=== PATIENT | male | born 1985 | race Caucasian/White ===

== ENCOUNTER → 2017-10-31 | Day surgery (SDC) | payer OTHER ==
[~2017-10-31] VITALS: Ht 177.8 cm; Wt 99.8 kg
[~2017-10-31] MED LIST: PERCOCET 5-3251 EACH PO
--- NOTE | 2017-11-04 12:10 | Operative Report ---
Operative/Inv Procedure Report Surgery Date: 10/31/17 Name of Procedure: Excision of deep upper back lipoma, 7 cm diameter Pre-Operative Diagnosis: Upper back lipoma Post-Operative Diagnosis: Same, deep Estimated Blood Loss: scant Surgeon/Personal Care Service Provider: Francisco Javier HUTCHINSON,Otoniel MUNGUIA Anesthesia: general endotracheal tube Operative/Procedure Note Note: After time outs patient was positioned lateral the lipoma was marked on the skin after induction of anesthesia and injection of local anesthetic at the dianna a 4 cm horizontal incision was made with a 15 blade and deepened with cautery which was then also used to deepen it. Under the subcutaneous fat and around this very lobulated 7 cm deep lipoma that was subfascial in a little bit in the muscle laterally, care was taken not to injure any surrounding neurovascular structures and to make sure we got around the whole mass completely in one piece it helped that the lipoma was paler than the surrounding fat. Afterwards we checked the space for bleeding and irrigated and then closed back up in layers using interrupted 3-0 Vicryl sutures deep and then a running subcuticular 4-0 nylon suture for the skin itself. EBL minimal lap and sponge counts correct wound expectancy clean IV fluids crystalloid complications none patient tolerated the procedure well was extubated and returned to recovery room in satisfactory condition.
== END ==
LOC: STS 02:30
DX: D21.6 Benign neoplasm of connective and other soft tissue of trunk, unspecified (principal); I10 Essential (primary) hypertension; Z88.4 Allergy status to anesthetic agent
CPT/HCPCS: 88304; J0690

== ENCOUNTER 2017-12-29 12:21 | Emergency (ER) | payer OTHER ==
[~2017-12-29] VITALS: Ht 180.3 cm; Wt 99.8 kg
[2017-12-29 12:25] VITALS: BP 166/108
[2017-12-29] MEDS ORDERED: ROBAXIN-750750 M1 PO (14:05)
[2017-12-29] MEDS ORDERED: IBUPROFEN800 M1 PO (14:05)
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
== END 2017-12-29 14:41 ==
LOC: ERH 12:21
DX: M54.5 Low back pain (principal)